=== PATIENT | male | born 1995 | race Caucasian/White ===

== ENCOUNTER → 2017-04-07 | Outpatient (CLI) | payer BC ==
--- NOTE | 2017-04-07 14:35 | MR ---
EXAMINATION TYPE: MR knee RT wo con DATE OF EXAM: 04/07/2017 COMPARISON: MR right knee 09/23/2011 HISTORY: rt knee pain TECHNIQUE: Multiplanar, multisequence imaging of the right knee is performed without IV contrast. FINDINGS: MEDIAL MENISCUS: Anterior and posterior horns are intact without tear. LATERAL MENISCUS: Stable appearance. Posterior horn appears somewhat truncated, body is attenuated as on prior exam. Body appears displaced from the joint space somewhat laterally. CRUCIATE LIGAMENTS: The anterior and posterior cruciate ligaments are intact and unremarkable. COLLATERAL LIGAMENTS: The medial collateral ligament and lateral collateral ligament complex are inta ct and unremarkable. EXTENSOR MECHANISM: Visualized quadriceps and patellar tendons are intact. EFFUSION: Small effusion as on prior exam. POPLITEAL CYST: No popliteal/araya cyst. TRICOMPARTMENT SPACES: Stable compared to prior exam. CARTILAGE: There is some grade 2 to grade III chondromalacia suspected along the lateral tibial plate au. Suspect some grade 2 to grade III chondromalacia medial femoral condyle. BONE MARROW SIGNAL: No focal abnormal marrow signal is appreciated. OTHER: No additional significant abnormality is appreciated. IMPRESSION: Findings are similar to prior exam. The lateral meniscus is attenuated and truncated in appearance an d displaced laterally as on prior exam. Some early osteoarthritic changes may be present. Suspect the re is chondromalacia in the lateral compartment, medial femoral condyle. Small joint effusion.
== END | disposition home or self-care (01) ==
LOC: RADMRIMAIN 11:38
PROVIDERS: ATTEND Orthopaedic Surgery
DX: M23.351 Other meniscus derangements, posterior horn of lateral meniscus, right knee (principal)

== ENCOUNTER → 2017-04-15 | Outpatient (CLI) | payer BC ==
[2017-04-15 14:57] LABS: Basophils # (A) 0.1 k/uL (0-0.2); Basophils % (A) 1 %; CH 28.7; CHCM 33.9; Eosinophils # (A) 0.3 k/uL (0-0.7); Eosinophils % (A) 3 %; HCT 48.3 % (39.0-53.0); HDW 2.61; HGB 15.6 gm/dL (13.0-17.5); Luc # (Auto) 0.12; Luc % (Auto) 1; Lymphocytes # (A) 1.6 k/uL (1.0-4.8); Lymphocytes % (A) 19 %; MCH 27.4 pg (25.0-35.0); MCHC 32.3 g/dL (31.0-37.0); MCV 84.8 fL (80.0-100.0); Monocytes # (A) 0.5 k/uL (0-1.0); Monocytes % (A) 5 %; Neutrophils # (A) 6.1 k/uL (1.3-7.7); Neutrophils % (A) 70 %; RBC 5.69 m/uL (4.30-5.90); RDW 13.9 % (11.5-15.5); WBC 8.7 k/uL (3.8-10.6); WBC (Perox) 8.58
[2017-04-15 15:09] LABS: Potassium 5.1 mmol/L (3.5-5.1)
== END | disposition home or self-care (01) ==
LOC: LABPAT 14:42
PROVIDERS: ATTEND Orthopaedic Surgery
DX: Z01.812 Encounter for preprocedural laboratory examination (principal); Z01.818 Encounter for other preprocedural examination; M23.91 Unspecified internal derangement of right knee
CPT/HCPCS: 80051; 85025

== ENCOUNTER 2017-04-26 06:56 | Day surgery (SDC) | payer BC ==
[2017-04-19 13:39] VITALS: BMI 35.9
--- NOTE | 2017-04-25 17:53 | HP ---
CHIEF COMPLAINT: Right knee pain. 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 He notes lateral pain and giving way. He had a previous arthroscopy in 2010. He is thinking of participating in the . PAST MEDICAL HISTORY: Negative. Past surgical history significant for previous right knee arthroscopy. Current medications: None. ALLERGIES: He denies drug allergies. FAMILY HISTORY: Significant for diabetes, hypertension, DVT and cancer. SOCIAL HISTORY: Negative for current tobacco or alcohol use. 16 point review of systems otherwise reviewed and is noncontributory. On examination, the patient is approximately 6 feet tall 260 pounds of mesomorphic habitus. HEENT Exam is nonfocal. Neck is supple. He has painless passive motion of the right hip. Straight leg raise is negative. Active motion right knee -4 to 125 degrees of flexion. He is tender about the lateral joint line. Collaterals are stable. Lachmans negative. Maegan s elicits lateral pain. His distal neurovascular exam appears to be intact in the right lower extremity. MRI report from 04/07/17 shows that the lateral meniscus is truncated and laterally displaced. Grade II to III chondral changes are noted involving the lateral tibial plateau. IMPRESSION: Internal derangement right knee with possible lateral meniscal tear and possible lateral tibial chondral injury. RECOMMENDATIONS: I talked to the patient at length regarding his treatment options. He is having persistent pain and mechanical symptoms that limit him at this point. After thorough discussion, he opts to proceed with surgery. We will plan to proceed with arthroscopic evaluation with possible partial lateral meniscectomy in addition to possible lateral tibial chondrectomy. . Risks and benefits are discussed at length in laymans terms. We will likely perform that as an outpatient procedure. SHAKIRA
[~2017-04-26 06:56] MED LIST: DEXAMETHASONE SOD PHOSPHATE 10 MG/ML 1 ML VIAL IV ONE; HYDROmorphone 1 MG/ML 1 ML SYRINGE IVP PRN; LACTATED RINGERS 1,000 ML IV SCH; MIDAZOLAM 2 MG/2 ML VIAL IV PRN; ONDANSETRON 4 MG/2 ML VIAL IVP ONE; SCOPOLAMINE 1.5MG/72HR PATCH TRANSDERM ONE; ceFAZolin 3 GM in SODIUM CHLORIDE 0.9% 100 ML IVPB ONE
[2017-04-26] MEDS ORDERED: LIDOCAINE 1% 20 ML VIAL (10MG/ML) FOR IV START INTRADERMA ONE (07:32)
[2017-04-26] MEDS ORDERED: HYDROmorphone (PF) 1 MG/ML ONE (07:53)
[2017-04-26] MEDS ORDERED: fentaNYL (PF) 50 MCG/ML 2 ML AMP ONE (07:53)
[2017-04-26] MEDS ORDERED: PROPOFOL 10 MG/ML 20 ML VIAL IV ONE (07:53)
[2017-04-26] MEDS ORDERED: LIDOCAINE 1% INJ 10MG/ML (20 ML MDV) ONE (07:53)
[2017-04-26] MEDS ORDERED: KETOROLAC 30 MG/ML 1 ML VIAL ONE (07:53)
[2017-04-26] MEDS ORDERED: MIDAZOLAM 2 MG/2 ML VIAL ONE (07:53)
--- NOTE | 2017-04-26 08:52 | P.OP ---
Date of Procedure: 04/26/17 Preoperative Diagnosis: Right knee internal derangement Postoperative Diagnosis: Right knee posterior medial meniscal tear/posterior lateral meniscal tear/grade 3 chondral injury posterior lateral portion lateral tibial plateau/grade 2 chondral injury central femoral trochlea Procedure(s) Performed: Right knee arthroscopic partial lateral meniscectomy/partial medial meniscectomy /lateral tibial chondrectomy/femoral trochlear chondroplasty Implants: Anesthesia: GETA Surgeon: Nic Vines Estimated Blood Loss (ml): 5 Pathology: none sent Condition: stable Disposition: PACU Indications for Procedure: The patient's a 21-year-old male who presents with persistent, progressive right knee pain and mechanical symptoms after recently increasing his activity level. He was having problems with squats and running. A discussion of the risks and benefits of continued conservative measures versus operative intervention was made with the patient. He opted to proceed with surgery. Operative risks to include infection, neurovascular injury, development of blood clots, possible incomplete resolution of symptoms, possible worsening of symptoms and need for subsequent procedures was discussed. Informed consent was obtained. Operative Findings: As below Description of Procedure: The patient was brought to the operating room, and after induction of general anesthesia I examined the right knee. Collaterals were stable, Julieth was negative, and posterior drawer was negative. The right lower extremity was prepped and draped in a normal fashion. A superior lateral portal was made through a 3 mm skin incision superior and lateral to the patella. This was used for outflow. A lateral portal was made through a 5 mm vertical skin incision lateral to the patella tendon above the joint line. Diagnostic arthroscopy was performed. A medial portal was made through a similar incision medial to the patella tendon above the joint line. On inspection medial compartment, he is noted to have a small radial tear involving the posterior aspect of the medial meniscus in the white-white junction. This was contoured back to stable base with straight baskets. Remaining medial meniscus was stable and intact. No significant chondral injury was noted involving the medial compartment. On inspection of the notch, the anterior cruciate ligament appeared to be intact. On inspection of the lateral compartment, there was a flap tear involving the posterior most aspect of the lateral meniscus. This was not amenable to repair. This debrided back to stable base with straight baskets and a motorized shaver. The edges were contoured. The remaining lateral meniscus was stable and intact. Diffuse grade 2 chondral changes were noted involving the lateral tibial plateau. A grade 2/3 chondral injury was noted involving the posterior lateral aspect with a loose flap. This was debrided back to stable base with a motorized shaver. On inspection patellofemoral articulation, grade 2 chondral injury was noted involving the central portion the femoral trochlea. A loose chondral flap was debrided back to stable base with a motorized shaver. The gutters were clear debris. The knee was then thoroughly irrigated. The portals were closed with Steri-Strips. A sterile dressing was applied in addition to a compression stocking. The patient was awoken from general anesthesia and transferred to recovery room in good condition. Blood loss was estimated at 5 mL. No complications were incurred..
[2017-04-26 08:57] VITALS: TEMP 97.8
[2017-04-26] MEDS ORDERED: HYDROcodone/APAP 7.5-325MG 1 EACH TAB PO ONE (09:55)
[2017-04-26 10:35] VITALS: BP 127/71; PULSE 74; RESP 20
== END 2017-04-26 10:44 | disposition home or self-care (01) ==
LOC: OR 06:56
PROVIDERS: ATTEND Orthopaedic Surgery
DX: S83.241A Other tear of medial meniscus, current injury, right knee, initial encounter (principal); S83.281A Other tear of lateral meniscus, current injury, right knee, initial encounter; S83.31XA Tear of articular cartilage of right knee, current, initial encounter; X58.XXXA Exposure to other specified factors, initial encounter; Y93.02 Activity, running; Z86.718 Personal history of other venous thrombosis and embolism
CPT/HCPCS: 84132; 29880; J2250; J1100; J0690; J2405; J2001; J3010; J1885; J1170; J2704

== ENCOUNTER 2017-12-22 12:26 | Emergency (ER) | payer BC ==
[2017-12-22 12:30] VITALS: BP 144/83; PULSE 117; RESP 20; TEMP 99
[2017-12-22] MEDS ORDERED: SULFAMETHOX-TMP 800-160MG 1 EACH TAB PO STA (13:09)
--- NOTE | 2017-12-22 13:14 | ED ---
General Adult HPI - General Chief complaint: Extremity Problem,Nontraumatic Stated complaint: Arm infection Time Seen by Provider: 12/22/17 12:47 Source: patient, RN notes reviewed Mode of arrival: ambulatory Limitations: no limitations - History of Present Illness Initial comments: 22-year-old male presents to the emergency department for a chief complaint of abscess in the right armpit. Patient states he has had an abscess there for about 3 days which has been draining. Patient states he noticed the redness starting to spread throughout his armpit late last night and this morning there was redness spreading to the upper part of his arm. Patient states it is painful to put pressure on his armpit and relax his arm due to the pressure applied. Patient denies any fevers. He states he has been checking them occasionally at home and has always been 98 F. patient denies any chills or weakness. Patient states he has not been doing warm compresses but the abscess has been draining anyway. Patient denies any known history of MRSA. Patient states he has never had cellulitis before. Patient denies any other complaints at this time including shortness of breath, chest pain, abdominal pain. - Related Data Home Medications Medication Instructions Recorded Confirmed Acetaminophen [Tylenol Extra 1,000 mg PO BID PRN 12/22/17 12/22/17 Strength] Ascorbic Acid [Vitamin C] 1,000 mg PO BID 12/22/17 12/22/17 Previous Rx's Medication Instructions Recorded Sulfamethox-Tmp 800-160Mg [Bactrim 2 tab PO Q12HR 7 Days tab 12/22/17 DS 800-160 mg] Allergies Allergy/AdvReac Type Severity Reaction Status Date / Time No Known Allergies Allergy Verified 12/22/17 12:49 Review of Systems ROS Statement: Those systems with pertinent positive or pertinent negative responses have been documented in the HPI. ROS Other: All systems not noted in ROS Statement are negative. 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 asthma" History of Any Multi-Drug Resistant Organisms: None Reported Past Surgical History: Orthopedic Surgery, Tonsillectomy Additional Past Surgical History / Comment(s): repair of lateral meniscus tear, wisdom teeth Past Anesthesia/Blood Transfusion Reactions: No Reported Reaction Past Psychological History: No Psychological Hx Reported Smoking Status: Never smoker Past Alcohol Use History: Rare Past Drug Use History: None Reported - Past Family History Father Family Medical History: Deep Vein Thrombosis (DVT) General Exam Limitations: no limitations Neck exam: Present: normal inspection, full ROM. Absent: tenderness, meningismus, lymphadenopathy Respiratory exam: Present: normal lung sounds bilaterally. Absent: respiratory distress, wheezes, rales, rhonchi, stridor Cardiovascular Exam: Present: regular rate, normal rhythm, normal heart sounds. Absent: systolic murmur, diastolic murmur, rubs, gallop, clicks Extremities exam: Present: full ROM, tenderness (Tenderness in the right upper extremity armpit.), normal capillary refill (Refill less than 2 seconds in the right upper extremity. Radial pulse 2+ bilaterally in the right upper extremities.), other (There is a small 1.5 cm abscess in the right armpit. The abscess is draining purulent exudate at this time which was cultured. Erythema appears to be spreading down the back of the arm not quite to the elbow. No redness on the back or chest. No streaking redness.) Course Vital Signs 12/22/17 12:27 Temperature 99.0 F Pulse Rate 117 H Respiratory 20 Rate Blood Pressure 144/83 O2 Sat by Pulse 100 Oximetry Medical Decision Making - Medical Decision Making 22-year-old male presents the emergency department for a chief complaint of right upper extremity pain and redness. There is a small abscess in the right armpit. There are cellulitic changes spreading down the back of the right arm that quite elbow. No redness on the chest or back. No fevers at home or in the emergency department. patient states he is nervous of hospital so is anxious. Vitals are 99 F temp, pulse 117, respirations 20, blood pressure 144/ 83, pulse ox 100. Patient denies chills or feelings of weakness. Patient states he feels fine states for the pain in his arm. Patient is in no acute distress and appears comfortable. Denies any history of MRSA. The abscesses is already draining and patient states he will use warm compresses to keep it draining. I did expel more exudate from the abscess without difficulty. Exudate was cultured and sent to lab. Patient was started on Bactrim DS 2 tablets twice a day which was started in the emergency department. I discussed at length monitoring the redness of the arm as well as fevers. Patient is going to draw with a black marker along the edges of the redness and monitor for an increase in the infection. If he has fevers he will report back to the emergency department. If he has any worsening symptoms he will come back as well. He will follow up regardless with his primary care provider in a day or 2. Patient agrees to do this. Disposition Clinical Impression: Abscess, Cellulitis Disposition: HOME SELF-CARE Condition: Good Instructions: Cellulitis (ED), Warm Compress or Soak (ED) Additional Instructions: Please take antibiotic as directed and start warm compresses of the abscess. Please monitor for increased redness, fever, or worsening symptoms. If these occur please return to the emergency department. Please follow-up with primary care in 1-2 days as discussed. Prescriptions: Sulfamethox-Tmp 800-160Mg [Bactrim DS 800-160 mg] 2 tab PO Q12HR 7 Days tab Referrals: Mj Peralta DO [Primary Care Provider] - 1-2 days Time of Disposition: 13:12
== END 2017-12-22 13:24 | disposition home or self-care (01) ==
LOC: EC 12:26
DX: L02.413 Cutaneous abscess of right upper limb (principal); L03.113 Cellulitis of right upper limb; Z79.899 Other long term (current) drug therapy
CPT/HCPCS: 87070; 87205; 99283

== ENCOUNTER 2017-12-23 19:38 | Inpatient (IN) | payer BC ==
[2017-12-23] MEDS ORDERED: SODIUM CHLORIDE 0.9% 1,000 ML IV ONE ×2 (20:37→22:49)
[2017-12-23] MEDS ORDERED: HYDROcodone/APAP 5-325MG 1 EACH TAB PO STA (20:46)
--- NOTE | 2017-12-23 20:49 | ED ---
Skin/Abscess/FB HPI - General Chief complaint: Skin/Abscess/Foreign Body Stated complaint: Cellulitis Time Seen by Provider: 12/23/17 20:19 Source: patient Mode of arrival: ambulatory Limitations: no limitations - History of Present Illness Initial comments: 22-year-old male patient presents to the emergency department today for complaints of worsening infection to his right arm. Patient states that since Tuesday he has been developing erythema and abscess to the right axillary region. States that the redness is spreading down his arm. States he was seen and evaluated here yesterday and was started on Bactrim. States he has taken 3 doses of the Bactrim but his symptoms seem to be worsening. Patient states he has had temperature as high as 100.5F. States he's been taking Tylenol for pain which is not helping. States he has been squeezing the abscess to drain pus. Patient did draw a line around the area of cellulitis yesterday, states that the redness has surpassed that line. Patient denies any recent shortness breath, chest pain, abdominal pain, nausea, vomiting, diarrhea, constipation, back pain, numbness, tingling, dizziness, weakness, hematuria, dysuria, urinary urgency, urinary frequency, headache, visual changes, or any other complaints. - Related Data Home Medications Medication Instructions Recorded Confirmed Acetaminophen [Tylenol Extra 1,000 mg PO Q4-6H PRN 12/22/17 12/23/17 Strength] Multivitamin [Multivitamins Adult 2 tab PO DAILY 12/23/17 12/23/17 Gummies] Previous Rx's Medication Instructions Recorded Sulfamethox-Tmp 800-160Mg [Bactrim 2 tab PO Q12HR 7 Days tab 12/22/17 DS 800-160 mg] Allergies Allergy/AdvReac Type Severity Reaction Status Date / Time No Known Allergies Allergy Verified 12/23/17 20:17 Review of Systems ROS Statement: Those systems with pertinent positive or pertinent negative responses have been documented in the HPI. ROS Other: All systems not noted in ROS Statement are negative. 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 asthma" History of Any Multi-Drug Resistant Organisms: None Reported Past Surgical History: Orthopedic Surgery, Tonsillectomy Additional Past Surgical History / Comment(s): repair of lateral meniscus tear, wisdom teeth Past Anesthesia/Blood Transfusion Reactions: No Reported Reaction Past Psychological History: No Psychological Hx Reported Smoking Status: Never smoker Past Alcohol Use History: Rare Past Drug Use History: None Reported - Past Family History Father Family Medical History: Deep Vein Thrombosis (DVT) General Exam Limitations: no limitations General appearance: alert, in no apparent distress, other (This is a well- developed, well-nourished adult male patient in no acute distress. Vital signs upon presentation are temperature 98.9F, pulse 94, respirations 16, blood pressure 136/77, pulse ox 98% on room air.) Eye exam: Present: normal appearance, PERRL, EOMI. Absent: scleral icterus, conjunctival injection, periorbital swelling ENT exam: Present: normal exam, normal oropharynx, mucous membranes moist Respiratory exam: Present: normal lung sounds bilaterally. Absent: respiratory distress, wheezes, rales, rhonchi, stridor Cardiovascular Exam: Present: regular rate, normal rhythm, normal heart sounds. Absent: systolic murmur, diastolic murmur, rubs, gallop, clicks GI/Abdominal exam: Present: soft, normal bowel sounds. Absent: distended, tenderness, guarding, rebound, rigid Extremities exam: Present: full ROM, normal capillary refill, other (Patient exhibited a 4 x 8 cm abscess to the right axillary region, did express purulent and bloody drainage. Patient has erythema surrounding the area of abscess extending down to about mid forearm and up into his chest.). Absent: normal inspection, pedal edema, joint swelling, calf tenderness Neurological exam: Present: alert, oriented X3, CN II-XII intact Psychiatric exam: Present: normal affect, normal mood Skin exam: Present: warm, dry, intact, normal color. Absent: rash Course Vital Signs 12/23/17 19:44 Temperature 98.9 F Pulse Rate 94 Respiratory 16 Rate Blood Pressure 136/77 O2 Sat by Pulse 98 Oximetry Medical Decision Making - Medical Decision Making 22-year-old male patient presented to the emergency department today for evaluation of worsening abscess and cellulitis to the right arm and axillary region. Patient reports spreading of the cellulitis despite 2-3 doses of Bactrim. I was able to express purulent fluid from the abscess. Labs did reveal an elevated white blood cell count at 19.6. Patient did report fevers at home as high as 100.5. Preliminary culture obtained yesterday does show probable staph aureus. Patient was placed on vancomycin and admitted to the hospital. I did discuss the case with Dr. Campuzano from [facility] he agrees to admission. - Lab Data Result diagrams: 12/23/17 20:03 12/23/17 20:03 Lab Results 12/23/17 12/23/17 12/23/17 Range/Units 20:03 20:03 20:03 WBC 19.6 H (3.8-10.6) k/uL RBC 5.23 (4.30-5.90) m/uL Hgb 14.6 (13.0-17.5) gm/dL Hct 42.6 (39.0-53.0) % MCV 81.5 (80.0-100.0) fL MCH 28.0 (25.0-35.0) pg MCHC 34.4 (31.0-37.0) g/dL RDW 12.0 (11.5-15.5) % Plt Count 201 (150-450) k/uL Neutrophils % 83 % Lymphocytes % 9 % Monocytes % 5 % Eosinophils % 1 % Basophils % 0 % Neutrophils # 16.3 H (1.3-7.7) k/uL Lymphocytes # 1.7 (1.0-4.8) k/uL Monocytes # 1.0 (0-1.0) k/uL Eosinophils # 0.2 (0-0.7) k/uL Basophils # 0.1 (0-0.2) k/uL Sodium 140 (137-145) mmol/L Potassium 4.2 (3.5-5.1) mmol/L Chloride 102 (98-107) mmol/L Carbon Dioxide 23 (22-30) mmol/L Anion Gap 15 mmol/L BUN 14 (9-20) mg/dL Creatinine 1.30 H (0.66-1.25) mg/dL Est GFR (CKD-EPI)AfAm 89 (>60 ml/min/1.73 sqM) Est GFR (CKD-EPI)NonAf 77 (>60 ml/min/1.73 sqM) Glucose 90 (74-99) mg/dL Plasma Lactic Acid Garcia 0.9 (0.7-2.0) mmol/L Calcium 9.0 (8.4-10.2) mg/dL Total Bilirubin 0.4 (0.2-1.3) mg/dL AST 18 (17-59) U/L ALT 27 (21-72) U/L Alkaline Phosphatase 83 (38-126) U/L Total Protein 6.1 L (6.3-8.2) g/dL Albumin 3.6 (3.5-5.0) g/dL Disposition Clinical Impression: Cellulitis and abscess of upper arm and forearm Disposition: ADMITTED IP TO THIS [facility] Condition: Serious Referrals: Mj Peralta DO [Primary Care Provider] - 1-2 days Decision to Admit Reason: Admit from EC Decision Date: 12/23/17 Decision Time: 21:44
[2017-12-23 21:19] LABS: Basophils # (A) 0.1 k/uL (0-0.2); Basophils % (A) 0 %; Eosinophils # (A) 0.2 k/uL (0-0.7); Eosinophils % (A) 1 %; HCT 42.6 % (39.0-53.0); HGB 14.6 gm/dL (13.0-17.5); Lymphocytes # (A) 1.7 k/uL (1.0-4.8); Lymphocytes % (A) 9 %; MCHC 34.4 g/dL (31.0-37.0); MCV 81.5 fL (80.0-100.0); Mean Platelet Volume 7.6; Monocytes % (A) 5 %; Neutrophils # (A) 16.3 k/uL (1.3-7.7); Neutrophils % (A) 83 %; Platelet Count 201 k/uL (150-450); RBC 5.23 m/uL (4.30-5.90); WBC 19.6 k/uL (3.8-10.6)
[2017-12-23 21:30] LABS: Albumin 3.6 g/dL (3.5-5.0); Potassium 4.2 mmol/L (3.5-5.1); Total Bilirubin 0.4 mg/dL (0.2-1.3); Total Protein 6.1 g/dL (6.3-8.2)
[2017-12-23] MEDS ORDERED: VANCOMYCIN IV PER PHARMACY 1 EACH MISC MISCELLANE PRN (21:38)
[2017-12-23] MEDS ORDERED: ACETAMINOPHEN TAB 325 MG TAB PO PRN (21:41)
[2017-12-23] MEDS ORDERED: HYDROcodone/APAP 5-325MG 1 EACH TAB PO PRN (21:41)
[2017-12-23] MEDS ORDERED: NALOXONE 0.4 MG/ML 1 ML VIAL IV PRN (21:41)
[2017-12-23] MEDS ORDERED: VANCOMYCIN 2,250 MG in SODIUM CHLORIDE 0.9% 500 ML IVPB ONE (22:00)
[2017-12-23] MEDS: SODIUM CHLORIDE 0.9% 1,000 ML IV SCH (22:08)
[2017-12-23 23:06] VITALS: BMI 35.9
[2017-12-23] MEDS ORDERED: MORPHINE SULFATE 4MG/4ML SYRG IVP PRN (23:30)
[2017-12-23] MEDS ORDERED: ONDANSETRON 4 MG/2 ML VIAL IVP PRN (23:30)
--- NOTE | 2017-12-23 23:32 | P.HPIM ---
History of Present Illness H&P Date: 12/23/17 Chief Complaint: fever 22-year-old male patient presents to the emergency department today for complaints of worsening infection to his right arm that apparently began on 4 days ago with severe tenderness in his Right axilla. Patient states that since Tuesday he has been developing erythema and abscess to the right axillary region. States that the redness is spreading down his arm. States he was seen and evaluated here yesterday and was started on Bactrim. States he has taken 3 doses of the Bactrim but his symptoms seem to be worsening. Patient states he has had temperature as high as 100.5F. States he's been taking Tylenol for pain which is not helping. States he has been squeezing the abscess to drain pus. Patient did draw a line around the area of cellulitis yesterday, states that the redness has surpassed that line. Patient denies any recent shortness breath, chest pain, abdominal pain, nausea, vomiting, diarrhea, constipation, back pain, numbness, tingling, dizziness, weakness, hematuria, dysuria, urinary urgency, urinary frequency, headache, visual changes, or any other complaints. Review of Systems All other 14 point review of systems (Negative except per HPI ROS unobtainable: due to endotracheal tube 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 asthma" History of Any Multi-Drug Resistant Organisms: None Reported Past Surgical History: Orthopedic Surgery, Tonsillectomy Additional Past Surgical History / Comment(s): repair of lateral meniscus tear, wisdom teeth Past Anesthesia/Blood Transfusion Reactions: No Reported Reaction Past Psychological History: No Psychological Hx Reported Smoking Status: Never smoker Past Alcohol Use History: Rare Past Drug Use History: None Reported - Past Family History Father Family Medical History: Deep Vein Thrombosis (DVT) Medications and Allergies Home Medications Medication Instructions Recorded Confirmed Type Acetaminophen [Tylenol Extra 1,000 mg PO Q4-6H PRN 12/22/17 12/23/17 History Strength] Sulfamethox-Tmp 800-160Mg [Bactrim 2 tab PO Q12HR 7 Days tab 12/22/17 12/23/17 Rx DS 800-160 mg] Multivitamin [Multivitamins Adult 2 tab PO DAILY 12/23/17 12/23/17 History Gummies] Allergies Allergy/AdvReac Type Severity Reaction Status Date / Time No Known Allergies Allergy Verified 12/23/17 20:17 Physical Exam Vitals: Vital Signs Temp Pulse Resp BP Pulse Ox 12/23/17 22:09 98.9 F 95 18 162/91 96 12/23/17 19:44 98.9 F 94 16 136/77 98 Intake and Output 12/23/17 12/23/17 12/23/17 06:59 14:59 22:59 Other: Weight 120.202 kg Constitutional: No acute distress, conversant, pleasant Eyes: Anicteric sclerae, moist conjunctiva, no lid-lag, PERRLA ENMT: NC/AT,Oropharynx clear, no erythema, exudates Neck:Supple, FROM, no masses, or JVD, No carotid bruits; No thyromegaly Lungs: Clear to auscultation, Clear to percussion, Normal respiratory effort, no accessory muscle use Cardiovascular: Heart regular in rate and rhythm, No murmurs, gallops, or rubs no peripheral edema Abdominal: Soft Nontender, nom distended, no guarding, no rebound or rigidity, Normoactive bowel sounds No hepatomegaly, No splenomegaly, No palpable mass No abdominal wall hernia noted Skin: (Patient exhibited a 4 x 8 cm abscess to the right axillary region, did express purulent and bloody drainage. Patient has erythema surrounding the area of abscess extending down to about mid forearm and up into his chest) Extremities:No digital cyanosis No clubbing, Pedal pulses intact and symmetrical Radial pulses intact and symmetrical Normal gait and station, No calf tenderness Psychiatric: Alert and oriented to person, place and time, Appropriate affect Intact judgement Neuro: Muscles Strength 5/5 in all 4 extremities, Sensation to light touch grossly present throughout, Cranial nerves II-XII grossly intact. No focal sensory deficits Results CBC & Chem 7: 12/23/17 20:03 12/23/17 20:03 Labs: Abnormal Lab Results - Last 24 Hours (Table) 12/23/17 12/23/17 Range/Units 20:03 20:03 WBC 19.6 H (3.8-10.6) k/uL Neutrophils # 16.3 H (1.3-7.7) k/uL Creatinine 1.30 H (0.66-1.25) mg/dL Total Protein 6.1 L (6.3-8.2) g/dL Assessment and Plan (1) STEFAN (acute kidney injury) Current Visit: Yes Status: Acute Code(s): N17.9 - ACUTE KIDNEY FAILURE, UNSPECIFIED SNOMED Code(s): 00717271 (2) Sepsis Current Visit: Yes Status: Acute Code(s): A41.9 - SEPSIS, UNSPECIFIED ORGANISM SNOMED Code(s): 36738086 (3) Axillary abscess Current Visit: Yes Status: Acute Code(s): L02.419 - CUTANEOUS ABSCESS OF LIMB, UNSPECIFIED SNOMED Code(s): 53535749 (4) Cellulitis of right upper extremity Current Visit: Yes Status: Acute Code(s): L03.113 - CELLULITIS OF RIGHT UPPER LIMB SNOMED Code(s): 234276988 Plan: The patient is admitted with sepsis anticipated greater than 2 midnight stay secondary to right axillary abscess and right upper extremity cellulitis, that failed outpatient treatment after he presented yesterday with similar complaints was started on oral Bactrim from the ED and sent home. At that time the patient had a normal white count today the patient has a significant leukocytosis of approximately 19.6, and is febrile and has acute kidney injury likely secondary to the Bactrim versus prerenal secondary to sepsis. Wound cultures preliminary information today growing staph aureus, we'll continue patient on vancomycin will add Zosyn pending final cultures, will check blood culture and urinalysis as well and chest x-ray. We'll order right axilla ultrasound and consult general surgery if there is absence present. We'll continue maintenance fluids, treat supportively with pain medication and antiemetics/antipyretics. Continue to follow his clinical course
[2017-12-24] MEDS: PIPERACILLIN-TAZOBACTAM 3.375 GM in DEXTROSE/WATER 1 50ML.BAG IVPB SCH ×4 (00:47→23:17)
[2017-12-24] MEDS: VANCOMYCIN 2,250 MG in SODIUM CHLORIDE 0.9% 500 ML IVPB SCH ×2 (06:06→17:50)
[2017-12-24] MEDS: SODIUM CHLORIDE 0.9% 1,000 ML IV SCH (07:54)
[2017-12-24 08:03] LABS: Basophils # (A) 0.1 k/uL (0-0.2); Basophils % (A) 0 %; Eosinophils # (A) 0.4 k/uL (0-0.7); Eosinophils % (A) 2 %; HCT 45.9 % (39.0-53.0); HGB 15.1 gm/dL (13.0-17.5); Lymphocytes # (A) 1.8 k/uL (1.0-4.8); Lymphocytes % (A) 9 %; MCH 28.2 pg (25.0-35.0); MCHC 32.9 g/dL (31.0-37.0); MCV 85.7 fL (80.0-100.0); Mean Platelet Volume 8.2; Monocytes # (A) 1.1 k/uL (0-1.0); Monocytes % (A) 6 %; Neutrophils # (A) 15.4 k/uL (1.3-7.7); Neutrophils % (A) 81 %; Platelet Count 197 k/uL (150-450); RBC 5.35 m/uL (4.30-5.90); RDW 12.3 % (11.5-15.5)
[2017-12-24] MEDS ORDERED: ONDANSETRON ODT 4 MG TAB PO PRN (08:09)
[2017-12-24 08:11] LABS: Anion Gap 15 mmol/L; Blood Urea Nitrogen 12 mg/dL (9-20); Calcium 9.2 mg/dL (8.4-10.2); Carbon Dioxide 22 mmol/L (22-30); Chloride 105 mmol/L (98-107); Glucose 86 mg/dL (74-99); Potassium 4.5 mmol/L (3.5-5.1); Sodium 142 mmol/L (137-145)
[2017-12-24 08:56] LABS: Appearance,Urine Clear (Clear); Bilirubin,Urine Negative (Negative); Blood,Urine Negative (Negative); Color,Urine Light Yellow; Glucose,Urine (UA) Negative (Negative); Ketones,Urine Negative (Negative); Leukocyte Esterase,Urine Negative (Negative); Nitrite,Urine Negative (Negative); PH, Urine 6.5 (5.0-8.0); Protein,Urine Negative (Negative); Specific Gravity,Urine 1.009 (1.001-1.035); Urobilinogen,Urine <2.0 mg/dL (<2.0)
[2017-12-24] MEDS ORDERED: LIDOCAINE 1% INJ 10MG/ML (20 ML MDV) SQ ONE (10:19)
[2017-12-24] MEDS ORDERED: MORPHINE SULFATE 4MG/4ML SYRG IVP PRN (10:41)
[2017-12-24] MEDS ORDERED: HYDROcodone/APAP 7.5-325MG 1 EACH TAB PO PRN (10:42)
[2017-12-24] MEDS ORDERED: MORPHINE ORAL SOLN 10 MG/5 ML CUP PO PRN (10:42)
--- NOTE | 2017-12-24 12:03 | US ---
EXAMINATION TYPE: US extremity nonvasculr mass RT DATE OF EXAM: 12/24/2017 COMPARISON: NONE CLINICAL HISTORY: rule out abscess. Redness from axilla to mid medial/anterior forearm. Patient just had right axilla abscess drained this morning. Per physician, scan area of redness and tenderness. Area of concern scanned. No focal masses or lesions seen. Superficial edema identified. IMPRESSION: SOFT TISSUE EDEMA WITHOUT EVIDENCE OF ABSCESS FORMATION MTDD
[2017-12-24 12:08] LABS: HCT 43.1 % (39.0-53.0); HGB 14.4 gm/dL (13.0-17.5); MCHC 33.3 g/dL (31.0-37.0); MCV 84.1 fL (80.0-100.0); Mean Platelet Volume 7.6; Platelet Count 184 k/uL (150-450); RBC 5.12 m/uL (4.30-5.90)
--- NOTE | 2017-12-24 13:48 | P.PN ---
Subjective Progress Note Date: 12/24/17 Principal diagnosis: arm pain Patient is a 22-year-old male past medical history of childhood asthma who presented with pain and worsening infection in his right arm. On arrival to the ER his vital signs were within normal limits. Laboratory analysis showed an elevated creatinine at 1.3 and elevated white blood cell count 16.9. He had an abscess in his right axilla which was draining. He was started on Zosyn and admitted to the general medical floor. His antibiotic was then broadened to include Zosyn. His abscess was spontaneously draining and was sent for culture. He been to the ER earlier in the week and a culture had been sent which were reviewed showed presumptive staph. Patient seen and examined at bedside. He complains of pain when trying to lift his arm or externally rotating his arm. No chest pain, shortness of breath, nausea, vomiting, or diarrhea. No history of infections in the past or recurrent skin infections. He donates blood and plasma often and has not been told he has HIV. Objective - Vital Signs Vital signs: Vital Signs Temp 98.2 F 12/24/17 06:13 Pulse 89 12/24/17 06:13 Resp 14 12/24/17 11:44 BP 114/73 12/24/17 06:13 Pulse Ox 99 12/24/17 06:13 Intake & Output 12/23/17 12/24/17 12/24/17 18:59 06:59 18:59 Output Total 1600 Balance -1600 Weight 120.202 kg 120.202 kg Output: Urine 1600 Other: Voiding Method Toilet Toilet # Voids 1 - Exam General: Ill appearing, no distress, appears at stated age Derm: Right axilla spontaneously draining purulent fluid with induration and redness on that extends past the forearm, significant swelling fluctuant area between armpit and forearm. warm, dry Head: atraumatic, normocephalic, symmetric Eyes: EOMI, no lid lag, anicteric sclera Mouth: no lip lesion, mucus membranes moist Cardiovascular: S1S2 reg, no murmur, positive posterior tibial pulse bilateral, Lungs: CTA bilateral, no rhonchi, no rales , no accessory muscle use Abdominal: soft, nontender to palpation, no guarding, no appreciable organomegaly Ext: no gross muscle atrophy, no edema, no contractures Neuro: CN II-XI grossly intact, no focal neuro deficits Psych: Alert, oriented, appropriate affect - Labs CBC & Chem 7: 12/24/17 11:37 12/24/17 07:39 Labs: Abnormal Lab Results - Last 24 Hours (Table) 12/23/17 12/23/17 12/24/17 Range/Units 20:03 20:03 07:39 WBC 19.6 H 19.0 H (3.8-10.6) k/uL Neutrophils # 16.3 H 15.4 H (1.3-7.7) k/uL Monocytes # 1.1 H (0-1.0) k/uL Creatinine 1.30 H (0.66-1.25) mg/dL Total Protein 6.1 L (6.3-8.2) g/dL 12/24/17 Range/Units 11:37 WBC 16.0 H (3.8-10.6) k/uL Neutrophils # (1.3-7.7) k/uL Monocytes # (0-1.0) k/uL Creatinine (0.66-1.25) mg/dL Total Protein (6.3-8.2) g/dL Assessment and Plan Assessment: Right axillary abscess with surrounding cellulitis, probable staph -Sepsis is ruled out as patient had an elevated white blood cell count but did not demonstrate significant tachycardia, fevers, or tachypnea -Continue with vancomycin change from Zosyn to Unasyn is no indication for pseudomonal coverage -Pain control -Await ultrasound to determine that there is no additional area of abscess Acute kidney injury -Likely secondary to Bactrim -IV fluids -Repeat kidney function already improved Morbid obesity -Structured outpatient weight Asthma, mild intermittent -As needed bronchodilators I did preform I and D at bedside. DVT prophylaxis: SCDs Discussed with:, Mother, nursing Anticipated discharge: 24-[address]: Home A total of [35] minutes was spent on the care of this complex patient more than 50% of the time was spent in counseling and care coordination.
--- NOTE | 2017-12-24 14:09 | P.PCN ---
Date of Procedure: 12/24/17 Preoperative Diagnosis: Abcess right axilla Postoperative Diagnosis: right axillary abscess Procedure(s) Performed: Bedside incision and drainage Anesthesia: local (2 mL of 1% lidocaine) Surgeon: Itzel Escobedo Estimated Blood Loss (ml): 5 Pathology: none sent Condition: stable Disposition: no change Indications for Procedure: abscess Description of Procedure: Bedside incision and drainage performed of right axillary abscess. Site was prepared with alcohol and then 2 mL of 1% lidocaine were infiltrated underneath the skin. Caseous material was expelled along with serosanguineous fluid. Approximately 1 mL of caseous material expelled from incision site. Pressure held and pressure dressing placed. Patient did receive 4 mg of IV morphine after procedure. Tolerated procedure well no immediate complications. Wound was left open to drain. An additional 15 mL of purulent fluid was drained from already open area under right arm.
[2017-12-25] MEDS: VANCOMYCIN 2,250 MG in SODIUM CHLORIDE 0.9% 500 ML IVPB SCH (05:28)
[2017-12-25] MEDS: SODIUM CHLORIDE 0.9% 1,000 ML IV SCH (05:41)
[2017-12-25 08:15] LABS: HCT 43.6 % (39.0-53.0); MCH 28.5 pg (25.0-35.0); MCHC 34.3 g/dL (31.0-37.0); MCV 83.2 fL (80.0-100.0); Mean Platelet Volume 7.8; Platelet Count 223 k/uL (150-450); RBC 5.24 m/uL (4.30-5.90); WBC 13.7 k/uL (3.8-10.6)
[2017-12-25 08:25] LABS: Anion Gap 14 mmol/L; Blood Urea Nitrogen 13 mg/dL (9-20); Calcium 9.4 mg/dL (8.4-10.2); Carbon Dioxide 23 mmol/L (22-30); Chloride 106 mmol/L (98-107); Glucose 82 mg/dL (74-99); Potassium 4.4 mmol/L (3.5-5.1); Sodium 143 mmol/L (137-145)
[2017-12-25] MEDS: PIPERACILLIN-TAZOBACTAM 3.375 GM in DEXTROSE/WATER 1 50ML.BAG IVPB SCH (08:34)
[2017-12-25] MEDS ORDERED: IBUPROFEN 600 MG TAB PO PRN (09:43)
--- NOTE | 2017-12-25 13:37 | P.PN ---
Subjective Progress Note Date: 12/25/17 Principal diagnosis: arm pain Patient is a 22-year-old male past medical history of childhood asthma who presented with pain and worsening infection in his right arm. On arrival to the ER his vital signs were within normal limits. Laboratory analysis showed an elevated creatinine at 1.3 and elevated white blood cell count 16.9. He had an abscess in his right axilla which was draining. He was started on Zosyn and admitted to the general medical floor. His antibiotic was then broadened to include Zosyn. His abscess was spontaneously draining and was sent for culture. He been to the ER earlier in the week and a culture had been sent which were reviewed showed presumptive staph. We did a bedside I and D which showed a small amount of caseous material in the arm but actively draining purulent fluid from an area that had already opened spontaneously. By the morning of 12/25 he had a rapid improvement in the arm redness and swelling but still had purulent drainage. Patient seen and examined at bedside. Arm pain is much improved, swelling better. Loose stools no diarrhea. No nausea or vomiting. No chest pain or shortness of breath. Objective - Vital Signs Vital signs: Vital Signs Temp 98.1 F 12/25/17 06:28 Pulse 78 12/25/17 06:28 Resp 16 12/25/17 06:28 BP 138/92 12/25/17 06:28 Pulse Ox 98 12/25/17 06:28 Intake & Output 12/24/17 12/25/17 12/25/17 18:59 06:59 18:59 Intake Total 600 400 Output Total 3200 Balance -2600 400 Weight 120.202 kg 120.202 kg Intake: Oral 600 400 Output: Urine 3200 Other: Voiding Method Toilet Toilet Toilet # Voids 2 3 - Exam General: Ill appearing, no distress, appears at stated age Derm: Right axilla spontaneously draining purulent fluid with decreased induration and redness that extends past the forearm, significant swelling now at elbow only warm, dry Head: atraumatic, normocephalic, symmetric Eyes: EOMI, no lid lag, anicteric sclera Mouth: no lip lesion, mucus membranes moist Cardiovascular: S1S2 reg, no murmur, positive posterior tibial pulse bilateral, Lungs: CTA bilateral, no rhonchi, no rales , no accessory muscle use Abdominal: soft, nontender to palpation, no guarding, no appreciable organomegaly Ext: no gross muscle atrophy, no edema, no contractures Neuro: CN II-XI grossly intact, no focal neuro deficits Psych: Alert, oriented, appropriate affect - Labs CBC & Chem 7: 12/25/17 07:35 12/25/17 07:35 Labs: Abnormal Lab Results - Last 24 Hours (Table) 12/24/17 12/25/17 Range/Units 11:37 07:35 WBC 16.0 H 13.7 H (3.8-10.6) k/uL Microbiology - Last 24 Hours (Table) 12/24/17 08:00 Gram Stain - Preliminary Axilla - Right Wound Culture - Preliminary Presumptive Staph aureus 12/23/17 20:03 Blood Culture - Preliminary Blood No Growth after 24 hours 12/24/17 08:00 Anaerobic Culture - Preliminary Axilla - Right Assessment and Plan Assessment: Staph Right axillary abscess with surrounding cellulitis -Sepsis is ruled out as patient had an elevated white blood cell count but did not demonstrate significant tachycardia, fevers, or tachypnea -Change to cefazolin -Pain control -Await ultrasound to determine that there is no additional area of abscess Acute kidney injury, resolved - off IVF Morbid obesity -Structured outpatient weight Asthma, mild intermittent -As needed bronchodilators DVT prophylaxis: SCDs Discussed with:patient nursing Anticipated discharge: [address]: Home A total of 25 minutes was spent on the care of this complex patient more than 50 % of the time was spent in counseling and care coordination.
[2017-12-25] MEDS: ceFAZolin 1,000 MG in DEXTROSE/WATER 1 50ML.BAG IVPB SCH ×2 (16:27→23:46)
[2017-12-25] MEDS: LACTOBACILLUS ACIDOPH & BULGAR 1 EACH PACKET PO SCH (22:47)
[2017-12-26 07:33] VITALS: BP 132/86; PULSE 84; RESP 16; TEMP 97.5
[2017-12-26 08:50] LABS: HGB 15.4 gm/dL (13.0-17.5); MCH 27.9 pg (25.0-35.0); MCHC 33.6 g/dL (31.0-37.0); MCV 83.1 fL (80.0-100.0); Mean Platelet Volume 7.7; Platelet Count 292 k/uL (150-450); RBC 5.53 m/uL (4.30-5.90); RDW 12.2 % (11.5-15.5); WBC 9.9 k/uL (3.8-10.6)
[2017-12-26] MEDS: LACTOBACILLUS ACIDOPH & BULGAR 1 EACH PACKET PO SCH (08:51)
[2017-12-26] MEDS: ceFAZolin 1,000 MG in DEXTROSE/WATER 1 50ML.BAG IVPB SCH (08:51)
[2017-12-26 09:16] LABS: Anion Gap 15 mmol/L; Blood Urea Nitrogen 14 mg/dL (9-20); Calcium 9.9 mg/dL (8.4-10.2); Carbon Dioxide 27 mmol/L (22-30); Chloride 102 mmol/L (98-107); Glucose 86 mg/dL (74-99); Potassium 4.3 mmol/L (3.5-5.1); Sodium 144 mmol/L (137-145)
--- NOTE | 2017-12-26 12:10 | P.DS ---
Providers Date of admission: 12/23/17 22:03 Expected date of discharge: 12/26/17 Attending physician: Larry Campuzano MD Primary care physician: Mj Peralta - Discharge Diagnosis(es) (1) Axillary abscess Current Visit: Yes Status: Acute (2) Cellulitis due to Staphylococcus Current Visit: Yes Status: Acute (3) Morbid obesity Current Visit: Yes Status: Acute (4) STEFAN (acute kidney injury) Current Visit: Yes Status: Acute Hospital Course: Patient is a 22-year-old male past medical history of childhood asthma who presented with pain and worsening infection in his right arm. On arrival to the ER his vital signs were within normal limits. Laboratory analysis showed an elevated creatinine at 1.3 and elevated white blood cell count 16.9. He had an abscess in his right axilla which was draining. He was started on Zosyn and admitted to the general medical floor. His antibiotic was then broadened to include Zosyn. His abscess was spontaneously draining and was sent for culture. He been to the ER earlier in the week and a culture had been sent which were reviewed showed presumptive staph. We did a bedside I and D which showed a small amount of caseous material in the arm but actively draining purulent fluid from an area that had already opened spontaneously. By the morning of 12/25 he had a rapid improvement in the arm redness and swelling but still had purulent drainage. The morning of 12/26 he had been afebrile and his white blood cell count was resolved. She had significant improvement in his erythema. He was determined stable for discharge home. He will complete an oral course of Keflex therapy as his culture is sensitive to this. He will also take lactobacillus twice a day while he is on antibiotic therapy to help with antibiotic associated diarrhea and decrease his risk of C. diff. He has not been requiring any opiate-based pain medications for over 24 hours. He was given a work note to remain off his [employer] work through 01/09. 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 He was told to follow-up with his primary care provider in the next 3-5 days for reassessment of the cellulitis and to ensure that abscess does not recur. Patient seen and examined at bedside. Arm pain is significantly improved. Purulent drainage has decreased. Swelling is decreased. Had 3 loose bowel movements yesterday but seems to be getting better after probiotic. No chest pain or shortness of breath. No nausea. Work restrictions as above. Vital signs reviewed and stable. General: non toxic, no distress, appears at stated age Derm: warm, dry, erythema of right arm up from the shoulder to elbow, mild swelling, no warmth Head: atraumatic, normocephalic, symmetric Eyes: EOMI, no lid lag, anicteric sclera Mouth: no lip lesion, mucus membranes moist Cardiovascular: S1S2 reg, no murmur, positive posterior tibial pulse bilateral, Lungs: CTA bilateral, no rhonchi, no rales , no accessory muscle use Abdominal: soft, nontender to palpation, no guarding, no appreciable organomegaly Ext: no gross muscle atrophy, no edema, no contractures Neuro: CN II-XI grossly intact, no focal neuro deficits Psych: Alert, oriented, appropriate affect A total of 42 minutes of time were spent preparing this complex discharge summary . Pertinent Studies: On ultrasound-diffuse soft tissue swelling, no abscess. Procedures: I and D right arm abscess. Patient Condition at Discharge: Serious Plan - Discharge Summary New Discharge Prescriptions: New Cephalexin [Keflex] 500 mg PO Q12HR #10 cap Continue Acetaminophen [Tylenol Extra Strength] 1,000 mg PO Q4-6H PRN PRN Reason: Pain Multivitamin [Multivitamins Adult Gummies] 2 tab PO DAILY Discontinued Sulfamethox-Tmp 800-160Mg [Bactrim DS 800-160 mg] 2 tab PO Q12HR 7 Days tab Discharge Medication List Acetaminophen [Tylenol Extra Strength] 1,000 mg PO Q4-6H PRN 12/22/17 [History] Multivitamin [Multivitamins Adult Gummies] 2 tab PO DAILY 12/23/17 [History] Cephalexin [Keflex] 500 mg PO Q12HR #10 cap 12/26/17 [Rx] Follow up Appointment(s)/Referral(s): Mj Peralta DO [Primary Care Provider] - 01/04/18 1:00 pm Patient Instructions/Handouts: Sepsis (GEN), Abscess (GEN) Activity/Diet/Wound Care/Special Instructions: regular diet activity as tolerated Please take over the counter lactobacillus twice daily no through 01/02/18 Return to medical care if worsening diarrhea, abdominal pain, fevers Discharge Disposition: HOME SELF-CARE
== END 2017-12-26 12:33 | disposition home or self-care (01) | DRG 603 ==
LOC: EC 19:38 → 4MS4W 22:03
PROVIDERS: ADMIT Family Medicine; ATTEND Family Medicine
PROC: 0X940ZZ Drainage of Right Axilla, Open Approach (ICD-10-PCS; principal; 2017-12-24)
DX: L03.113 Cellulitis of right upper limb (principal); N17.9 Acute kidney failure, unspecified; L02.411 Cutaneous abscess of right axilla; J45.20 Mild intermittent asthma, uncomplicated; E66.01 Morbid (severe) obesity due to excess calories; Z68.35 Body mass index [BMI] 35.0-35.9, adult; T37.0X5A Adverse effect of sulfonamides, initial encounter; Z53.9 Procedure and treatment not carried out, unspecified reason; B95.61 Methicillin susceptible Staphylococcus aureus infection as the cause of diseases classified elsewhere
CPT/HCPCS: 36415; 80048; 80053; 81003; 83605; 83735; 85025; 85027; 87040; 87070; 87075; 87077; 87186; 87205; 96360; 99284

== ENCOUNTER 2019-04-04 00:36 | Emergency (ER) | payer BC, OTHER ==
[2019-04-04 00:48] VITALS: BP 156/105; PULSE 102; RESP 18; TEMP 98.8
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
== END 2019-04-04 01:16 | disposition home or self-care (01) ==
LOC: EC 00:36
DX: T22.40XA Corrosion of unspecified degree of shoulder and upper limb, except wrist and hand, unspecified site, initial encounter (principal); T22.50XA Corrosion of first degree of shoulder and upper limb, except wrist and hand unspecified site, initial encounter; T54.3X1A Toxic effect of corrosive alkalis and alkali-like substances, accidental (unintentional), initial encounter; Y93.89 Activity, other specified; Y92.69 Other specified industrial and construction area as the place of occurrence of the external cause
CPT/HCPCS: 99282